=== PATIENT | male | born 1960 | race Caucasian/White ===

== ENCOUNTER 2019-09-03 17:52 | Emergency (ER) | payer SELFPAY ==
[2019-09-03 17:54] VITALS: BP 116/73; PULSE 94; RESP 18; TEMP 36.9; O2SAT 94; BMI 22.3
--- NOTE | 2019-09-03 18:05 | ED_ITS ---
HPI - Chest Pain General: Chief Complaint: Chest Pain Stated Complaint: ETOH Time Seen by Provider: 09/03/19 18:03 Source: patient and EMS Mode of arrival: EMS Limitations: no limitations History of Present Illness: HPI narrative: 59-year-old male who was at [facility] states he had been drinking alcohol and the clothing designer were called. Loan Administrator called EMS. Patient denies any pain currently. He states he does had a few beers today. He is able to ambulate without any problems and able answer all my questions appropriately at this time. Associated symptoms: Deny abdominal pain, dyspnea, fever(s), nausea or vomiting Review of Systems Const: Denies: fever(s), chills, body aches or change in appetite Eyes: Denies: blurry vision or eye discomfort ENMT: Denies: throat pain or dental pain Card: Denies: chest pain Resp: Denies: dyspnea GI: Denies: abdominal pain, nausea, vomiting or diarrhea : Denies: dysuria Musc: Denies: neck pain or back pain Skin/Breast: Denies: rash Neuro: Denies: headache(s) Psych: Denies: depression Gilbert/Lymph: Denies: easy bruising All/Imm: Denies: urticaria Physical Exam Const: COMMON NORMALS: no acute distress, patient oriented x3 and healthy appearing HENMT: COMMON NORMALS: normocephalic and atraumatic HEAD & SCALP: normocephalic and atraumatic Eye: COMMON NORMALS: Equal, round and reactive pupils present and EOMs intact bilaterally PUPIL: Yes Equal, round and reactive pupils present Neck/C-Spine: COMMON NORMALS: full ROM and supple Chest: COMMONS NORMALS: normal inspection of the chest and normal palpation of entire chest wall Resp: COMMON NORMALS: normal respiratory effort, No retractions, No use of accessory muscles and clear to auscultation bilaterally AUSCULTATION: clear to auscultation bilaterally Cardio: COMMON NORMALS: regular rate, regular rhythm and No murmurs present (Cardio) RATE: regular rate RHYTHM: regular rhythm GI: COMMON NORMALS: Normal to inspection, nondistended, normoactive bowel sounds present, Soft to palpation, non-tender and no masses PALPATION: Yes Soft to palpation Extremity: COMMON NORMALS: normal to inspection and full ROM Neuro: COMMON NORMALS: patient oriented x3, moves all extremities and no focal motor deficits Psych: COMMON NORMALS: mental status grossly normal, Normal thought process present and cooperative THOUGHT PROCESS: Normal thought process present Skin: COMMON NORMALS: no rashes or lesions noted and no wounds GENERAL SKIN EXAM: no rashes or lesions noted Course Vital Signs: Vital signs: Vital Signs Temperature 98.4 F 09/03/19 17:54 Pulse Rate 94 09/03/19 17:54 Respiratory Rate 18 09/03/19 17:54 Blood Pressure 116/73 09/03/19 17:54 Pulse Oximetry 94 09/03/19 17:54 MDM - Chest Pain MDM Narrative: Medical decision making narrative: Patient presents with alcohol intoxication. Patient is refusing treatment this time states he wants to go out and smoke and just leave. Patient is able ambulate answer all my questions and has medical decision-making capacity and is not too intoxicated to leave at this point. I did give him thiamine and multivitamin. Patient discharged. Discharge Plan Discharge Patient Disposition: Home, Self-Care Clinical Impression: Alcohol intoxication Qualifiers: Complication of substance-induced condition: uncomplicated Qualified Code(s): F10.920 - Alcohol use, unspecified with intoxication, uncomplicated Condition: Stable Discharge Orders: Discharge Order (Routine); Ordered 09/03/19 Ordered By: Silvia Little Discharge Diet: Advance as tolerated Discharge Activity: Resume usual activity Patient Instructions: Alcohol Intoxication (ED) Coding Level of Care Code ED Employee Operations Examiner for No Parmar
--- NOTE | 2019-09-03 18:10 | PC.NURSE ---
Patient refusing care, becoming agitated with nursing staff.
[2019-09-03 18:30] VITALS: RESP 18; TEMP 36.9; O2SAT 94
== END 2019-09-03 18:32 | disposition home or self-care (01) ==
LOC: ER 18:26
PROVIDERS: Emergency Provider Emergency Medicine
DX: F10.920 Alcohol use, unspecified with intoxication, uncomplicated (principal)
CPT/HCPCS: 12345; 96374; 99281; 99283; J3411

== ENCOUNTER 2020-01-01 13:58 | Inpatient (IN) | payer SELFPAY ==
[2020-01-01] VITALS (26 sets, daily range): BP systolic 101–152; BP diastolic 54–92; PULSE 41–86; RESP 6–24; TEMP 36.6–36.8; O2SAT 88–99; BMI 25.4
--- NOTE | 2020-01-01 | CT_ITS ---
WS: [id number] CTA THORACIC AND ABDOMINAL AORTA WITH AND WITHOUT CONTRAST. HISTORY: CHEST/ABS, BACK PAIN WITH NO FEMORAL PULSES TECHNIQUE: CTA imaging of the chest and abdomen is performed with and without contrast. After noncont rast imaging is performed, CT angiogram is performed during injection of Visipaque 320; 95 mL IV.. Sa gittal and coronal reconstructions, sagittal and coronal MIP imaging is submitted. All CT scans at [facility] use at least one of these dose optimization techniques: automated exposure contr ol; mA and/or kV adjustment per patient size (includes targeted exams where dose is matched to clinic al indication); or iterative reconstruction. DLP: 855.87 mGy.cm COMPARISON: None available. Angiographic imaging of the thoracic and abdominal aorta are negative for occlusion or dissection. Mi ld atherosclerotic plaque. No aneurysm. Proximal common iliac arteries are both patent. Study was not performed to include the distal iliac arteries. Normal size pulmonary artery. Mild chronic emphysema. 6 mm nodule along the RIGHT major fissure is probably a lymph node. No pneumo alf. No pericardial or pleural effusions. No mediastinal or hilar lymph nodes. There are a few scatte red coronary artery calcifications. Small hiatal hernia. No ascites or free air noted within the abdo men. Visualized GI tract is normal. There is no obstruction. Normal early arterial enhancement of the kidneys and liver. Thoracolumbar scoliosis. Mild anterior wedging of T5 and T7. CT/CT angio chest abdomen IMPRESSION: 1. No evidence for thoracic or abdominal aortic aneurysm or dissection. 2. Mild atherosclerosis within the thoracic aorta and abdominal aorta with goo d flow in the proximal common iliac arteries. 3. No pneumonia. 4. Emphysema. 5. Small hiatal hernia.
--- NOTE | 2020-01-01 14:12 | W.ED.CHESTPA ---
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 (0-40) U/L ALT (0-41) U/L Alkaline Phosphata se (40-130) IU/L Creatine Kinase (39-308) U/L Troponin T Baselin e (0-15) ng/L Troponin T 120 Min pauma (0-15) ng/L Delta Troponin T (0-10) ABS# Total Protein (6.6-8.7) g/dL Albumin (3.5-5.2) g/dL Globulin (1.3-4.6) g/dL Lipase 51 (13-60) U/L Urine Color (Yellow) Urine Appearance (CLEAR) Urine pH (5-7) Ur Specific Gravit y (1.005-1.030) Urine Protein (Negative) Urine Glucose (UA) (Normal) Urine Ketones (Negative) Urine Blood (Negative) Urine Nitrate (Negative) Urine Bilirubin (Negative) Urine Urobilinogen (Negative) mg/dL Ur Leukocyte Melanie ase (Negative) Urine Opiates Scre en (Negative) ng/mL Ur Barbiturates Sc reen (Negative) ng/mL Ur Phencyclidine S crn (Negative) ng/mL Ur Amphetamines Sc reen (Negative) ng/mL U Benzodiazepines Scrn (Negative) ng/mL Urine Cocaine Scre en (Negative) ng/mL U Marijuana (THC) Screen (Negative) ng/mL Ethyl Alcohol Cancelled (0-10) mg/dL 01/01/20 Range/Units 17:47 WBC (4.0-10.0) 10^3/ uL RBC (4.1-5.3) 10^6/u L Hgb (11.7-16.6) g/dL Hct (42.0-52.0) % MCV (80-94) fL MCH (28.0-34.0) pg MCHC (30.0-36.0) g/dL RDW (12.1-15.1) % Plt Count (130-400) 10^3/c mm MPV (7.4-10.4) fL Neut % (Auto) % Lymph % (Auto) % [place] % (Auto) % Eos % (Auto) % Baso % (Auto) % Neut # (Auto) (1.8-7.7) 10^3/u L Lymph # (Auto) (0.8-4.8) 10^3/u L [place] # (Auto) (0.2-0.9) 10^3/u L Eos # (Auto) (0.0-0.8) 10^3/u L Baso # (Auto) (0.0-0.1) 10^3/u L Nucleated RBC % (a uto) % Nucleated RBCs # /100WBC PT (12.1-14.9) SECO NDS INR (0.8-1.2) D-Dimer (0-0.59) ug/mIFE U Sodium (136-145) mmol/L Potassium (3.5-5.1) mmol/L Chloride (98-107) mmol/L Carbon Dioxide (22-29) mmol/L Anion Gap (5-19) BUN (8-23) mg/dL Creatinine (0.7-1.2) mg/dL GFR Calculation (90-130) mL/min Glucose (65-115) mg/dL Calculated Osmolal ity (285-295) mOsm/k g Lactic Acid 3.1 H (0.5-2.2) mmol/L Calcium (8.5-10.5) mg/dL Magnesium (1.7-2.3) mg/dL Total Bilirubin (0.15-1.2) mg/dL AST (0-40) U/L ALT (0-41) U/L Alkaline Phosphata se (40-130) IU/L Creatine Kinase (39-308) U/L Troponin T Baselin e (0-15) ng/L Troponin T 120 Min pauma (0-15) ng/L Delta Troponin T (0-10) ABS# Total Protein (6.6-8.7) g/dL Albumin (3.5-5.2) g/dL Globulin (1.3-4.6) g/dL Lipase (13-60) U/L Urine Color (Yellow) Urine Appearance (CLEAR) Urine pH (5-7) Ur Specific Gravit y (1.005-1.030) Urine Protein (Negative) Urine Glucose (UA) (Normal) Urine Ketones (Negative) Urine Blood (Negative) Urine Nitrate (Negative) Urine Bilirubin (Negative) Urine Urobilinogen (Negative) mg/dL Ur Leukocyte Melanie ase (Negative) Urine Opiates Scre en (Negative) ng/mL Ur Barbiturates Sc reen (Negative) ng/mL Ur Phencyclidine S crn (Negative) ng/mL Ur Amphetamines Sc reen (Negative) ng/mL U Benzodiazepines Scrn (Negative) ng/mL Urine Cocaine Scre en (Negative) ng/mL U Marijuana (THC) Screen (Negative) ng/mL Ethyl Alcohol (0-10) mg/dL Imaging Data^: CTA Chest/Abdomen/Pelvis: Radiologist's impression: [address] [address] [address] Scan Report Signed Patient: Hema Segovia Unit #: [id number] : 1960 Age/Sex: 59 / M ADM Date: 01/01/20 Loc: ER Room/Bed: Attending Dr: Ordering Provider/Ordering MD: Darwin Franco DO Date of Service: 01/01/20 Procedure(s): CT angio chest abdomen Accession Number(s): [id number] Report Number: [id number] WS: [id number] CTA THORACIC AND ABDOMINAL AORTA WITH AND WITHOUT CONTRAST. HISTORY: CHEST/ABS, BACK PAIN WITH NO FEMORAL PULSES TECHNIQUE: CTA imaging of the chest and abdomen is performed with and without contrast. After noncontrast imaging is performed, CT angiogram is performed during injection of Visipaque 320; 95 mL IV.. Sagittal and coronal reconstructions, sagittal and coronal MIP imaging is submitted. All CT scans at [facility] use at least one of these dose optimization techniques: automated exposure control; mA and/or kV adjustment per patient size (includes targeted exams where dose is matched to clinical indication); or iterative reconstruction. DLP: 855.87 mGy.cm COMPARISON: None available. Angiographic imaging of the thoracic and abdominal aorta are negative for occlusion or dissection. Mild atherosclerotic plaque. No aneurysm. Proximal common iliac arteries are both patent. Study was not performed to include the distal iliac arteries. Normal size pulmonary artery. Mild chronic emphysema. 6 mm nodule along the RIGHT major fissure is probably a lymph node. No pneumonia. No pericardial or pleural effusions. No mediastinal or hilar lymph nodes. There are a few scattered coronary artery calcifications. Small hiatal hernia. No ascites or free air noted within the abdomen. Visualized GI tract is normal. There is no obstruction. Normal early arterial enhancement of the kidneys and liver. Thoracolumbar scoliosis. Mild anterior wedging of T5 and T7. CT/CT angio chest abdomen IMPRESSION: 1. No evidence for thoracic or abdominal aortic aneurysm or dissection. 2. Mild atherosclerosis within the thoracic aorta and abdominal aorta with good flow in the proximal common iliac arteries. 3. No pneumonia. 4. Emphysema. 5. Small hiatal hernia. Dictated By: Martha Canada DO Signed By: Martha Canada DO Signed Date/Time: 01/01/20 1443 DD/ 1435 EKG Data^: EKG 1: Attestation: I personally reviewed and interpreted this EKG as follows: EKG interpretation date: 01/01/20 EKG interpretation time: 13:57 Interpretation: Probable sinus bradycardia with a ventricular to 46 beats a minute, significant baseline artifact present, questionable ST elevation in room numeral 3, ST segment depression in V2, otherwise nonspecific ST-T wave changes. No old for comparison. EKG 2: Attestation: I personally reviewed and interpreted this EKG as follows: EKG interpretation date: 01/01/20 EKG interpretation time: 17:37 Interpretation: Normal sinus rhythm at 64 beats a minute, no acute ST or T wave changes. No blocks, normal intervals. EKG 3: Attestation: I personally reviewed and interpreted this EKG as follows: EKG interpretation date: 01/01/20 EKG interpretation time: 17:56 Interpretation: Normal sinus rhythm at 54 beats a minute, first-degree AV block, nonspecific ST and T wave changes. EKG 4: Attestation: I personally reviewed and interpreted this EKG as follows: EKG interpretation date: 01/01/20 EKG interpretation time: 20:31 Interpretation: Sinus bradycardia 54 beats a minute, no blocks, normal axis, no acute ST-T wave changes. Discharge Plan Discharge Patient Disposition: Placed in Observation Admit Provider: Dione Evans Clinical Impression: NSTEMI (non-ST elevated myocardial infarction) Coding Level of Care Code ED Muck Farmer for g Fwd Exam Comprehensive
[2020-01-01 14:17] LABS: Basophils # 0.1 10^3/uL (0.0-0.1); Basophils % 0.6 %; Eosinophils # 0.4 10^3/uL (0.0-0.8); Eosinophils % 3.4 %; Hematocrit 45.9 % (42.0-52.0); Hemoglobin 15.2 g/dL (11.7-16.6); Lymphocytes # 4.3 10^3/uL (0.8-4.8); Lymphocytes % 41.1 %; Mean Corpuscular HGB Conc 33.1 g/dL (30.0-36.0); Mean Corpuscular Hemoglobin 31.8 pg (28.0-34.0); Mean Platelet Volume 10.3 fL (7.4-10.4); Monocytes % 10.1 %; Neutrophils # 4.62 10^3/uL (1.8-7.7); Neutrophils % 44.6 %; Nucleated Red Blood Cells % 0 %; Platelet Count 320 10^3/cmm (130-400); Red Blood Count 4.78 10^6/uL (4.1-5.3); Red Cell Distribution Width 12.5 % (12.1-15.1); White Blood Count 10.3 10^3/uL (4.0-10.0)
[2020-01-01] MEDS: iodixanol 320 mg/mL 100mL Btl IV (14:23)
--- NOTE | 2020-01-01 14:31 | ECG_ITS ---
[facility] Test Date: 2020-01-01 Pat Name: Hema Segovia Department: Room: Gender: Male Inspector Multifocal Lens: : 1960 Requested By: Darwin Ward Order Number: [id number] Reading MD: DAVID COELHO Measurements Intervals [place] Rate: 46 P: VA: QRS: 64 QRSD: 82 T: 66 QT: 453 QTc: 399 Interpretive Statements Sinus BRADYCARDIA NONSPECIFIC ST & T-WAVE ABNORMALITY ABNORMAL RHYTHM ECG No previous ECG available for comparison Electronically Signed On 01-01-2020 19:36:43 SEX THERAPIST by DAVID COELHO [email or web address] medical centerradRounds Radiology Networkwyandot memorial hospital.TaKaDu/store/NU/[id number] f
[2020-01-01 14:33] LABS: Alanine Aminotransferase 30 U/L (0-41); Albumin Level 4.1 g/dL (3.5-5.2); Alkaline Phosphatase 95 IU/L (40-130); Anion Gap 15.3 (5-19); Aspartate Amino Transferase 36 U/L (0-40); Blood Urea Nitrogen 10 mg/dL (8-23); Calcium 8.6 mg/dL (8.5-10.5); Carbon Dioxide 25 mmol/L (22-29); Chloride 100 mmol/L (98-107); Creatine Phosphokinase 65 U/L (39-308); Globulin 2.6 g/dL (1.3-4.6); Glomerular Filtration Rate 98.3 mL/min (90-130); Glucose 189 mg/dL (65-115); Osmolality Calculated 288 mOsm/kg (285-295); Potassium 3.3 mmol/L (3.5-5.1); Sodium 137 mmol/L (136-145); Total Bilirubin 0.4 mg/dL (0.15-1.2); Total Protein 6.7 g/dL (6.6-8.7)
[2020-01-01] MEDS: ondansetron 2 mg/ML SDV 2 mL 4 MG IVP (14:40)
[2020-01-01] MEDS: morphine 4 mg/mL SDV 1 mL IVP (14:40)
--- NOTE | 2020-01-01 16:31 | ECG_ITS ---
[facility] Test Date: 2020-01-01 Pat Name: Hema Segovia Department: Room: Gender: Male Desizing Machine Offbearer: : 1960 Requested By: Darwin Ward Order Number: [id number] Reading MD: DAVID COELHO Measurements Intervals [place] Rate: 64 P: 60 CA: 200 QRS: -6 QRSD: 90 T: -25 QT: 407 QTc: 421 Interpretive Statements SINUS RHYTHM NONSPECIFIC T-WAVE ABNORMALITY Compared to ECG 01/01/2020 13:57:57 No significant changes Electronically Signed On 01-01-2020 19:39:43 PATIENT SUPPORT TECH by DAVID COELHO [email or web address]/store/OM/[id number]/[id number]
[2020-01-01 17:18] LABS: Add Urine Microscopic? NO
[2020-01-01 17:37] LABS: Blood Urine Neg (Negative); Glucose Urine UA Trace (Normal); Ketones Urine Negative (Negative); Nitrate Urine Negative (Negative); Protein Urine Neg (Negative); Urine Appearance Clear (CLEAR); Urine Color Yellow (Yellow); pH Urine 6 (5-7)
[2020-01-01 17:38] LABS: Bilirubin Urine Neg (Negative); Leukocyte Esterase Urine Negative (Negative); Urobilinogen Urine Norm (Negative)
[2020-01-01 17:56] LABS: Troponin(5th) Baseline 29 ng/L (0-15)
[2020-01-01 18:27] LABS: Lactic Sepsis W/Reflex 3.1 mmol/L (0.5-2.2)
[2020-01-01 18:29] LABS: Troponin 5 2HR 66.93 ng/L (0-15)
[2020-01-01] MEDS: potassium chloride ER 10 mEq Tablet 40 MEQ PO (18:34)
[2020-01-01 18:42] LABS: Troponin 5 2HR Delta 37.93 ABS# (0-10)
[2020-01-01 18:51] LABS: Magnesium 1.9 mg/dL (1.7-2.3)
[2020-01-01] MEDS: nitroglycerin 0.4 mg sublingual Tablet SUBLINGUAL (18:54)
[2020-01-01] MEDS: aspirin 325 mg Tablet PO (18:54)
[2020-01-01] MEDS: sodium chloride 0.9% 1,000 ML 999 ML IV (19:24)
[2020-01-01] MEDS: HYDROmorphone 1 mg/mL INJ 1 mL IVP (19:25)
[2020-01-01 19:41] LABS: Reflex Lactate Order REFLEX LACTIC ORDERD
[2020-01-01] MEDS: nitroglycerin 1 gm/inch oint Pkt 1 INCH TOPICAL (20:05)
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
[2020-01-01 20:27] LABS: Lipase 51 U/L (13-60)
--- NOTE | 2020-01-01 20:31 | ECG_ITS ---
[facility] Test Date: 2020-01-01 Pat Name: Hema Segovia Department: Room: Gender: Male Installer Interior Assemblies: : 1960 Requested By: Darwin Ward Order Number: [id number] Reading MD: DAVID COELHO Measurements Intervals [place] Rate: 54 P: 40 CA: 213 QRS: -18 QRSD: 85 T: -48 QT: 436 QTc: 416 Interpretive Statements SINUS BRADYCARDIA WITH FIRST DEGREE AV BLOCK NONSPECIFIC T-WAVE ABNORMALITY Compared to ECG 01/01/2020 17:37:48 First degree AV block now present Sinus rhythm no longer present T-wave abnormality still present Electronically Signed On 01-01-2020 19:39:40 SECOND LANGUAGE TUTOR by DAVID COELHO [email or web address] hospitalCherry Bugsholmes county [facility].Rated People/store/OM/[id number]/ecg/[id number]
--- NOTE | 2020-01-01 20:43 | PC.NURSE ---
EKG done at 2032 and shown to ER doctor
[2020-01-01 20:49] LABS: INR 0.98 (0.8-1.2)
[2020-01-01 21:06] LABS: Alcohol Level 109 mg/dL (0-10)
[2020-01-01] MEDS: enoxaparin 80 mg/0.8 mL Syringe 67 MG SUBCUT (21:17)
[2020-01-01 21:28] LABS: Amphetamines Screen Urine Negative (Negative); Barbiturates Screen Urine Negative (Negative); Benzodiazepines Screen Urine Negative (Negative); Cocaine Screen Urine Negative (Negative); Opiate Screen Urine Positive (Negative); PCP Screen Urine Negative (Negative); THC Screen Urine Negative (Negative)
[2020-01-01 22:06] LABS: Lactic Sepsis W/Reflex 2.6 mmol/L (0.5-2.2)
[2020-01-01 22:15] LABS: Troponin 5 6HR 191.8 ng/L (0-15); Troponin 5 6HR Delta 162.8 ng/L (0-12)
[2020-01-01 22:24] LABS: Thyroid Stimulating Hormone 1.87 uIU/mL (0.27-4.20)
[2020-01-01] MEDS: clopidogrel 75 mg Tablet PO (22:36)
[2020-01-01] MEDS: dextrose 5%-sod chloride 0.45% 1,000 ML 30 ML IV (22:37)
--- NOTE | 2020-01-01 22:54 | PC.NURSE ---
Patient arrived from ED via wheelchair at 2135. Telemetry placed. Patient denies pain. Admission completed as documented. Patient reports no home meds except for low dose aspirin. Patient pleasant and agreeable. Instructed patient on Plavix administration. Patient reports having taken Plavix in the past for previous PCI placement.
[2020-01-01 23:25] LABS: Reflex Lactate Order REFLEX LACTIC ORDERD
[2020-01-02] VITALS (34 sets, daily range): BP systolic 94–145; BP diastolic 52–93; PULSE 44–97; RESP 0–20; TEMP 36.2–36.9; O2SAT 93–98
[2020-01-02 00:24] LABS: Lactic Acid level (Lactate) 1.3 mmol/L (0.5-2.2)
[2020-01-02 05:05] LABS: Basophils % 0.5 %; Eosinophils # 0.3 10^3/uL (0.0-0.8); Hemoglobin 13.6 g/dL (11.7-16.6); Lymphocytes % 38.4 %; Mean Corpuscular HGB Conc 33.2 g/dL (30.0-36.0); Mean Corpuscular Hemoglobin 31.8 pg (28.0-34.0); Mean Corpuscular Volume 95.8 fL (80-94); Mean Platelet Volume 10.5 fL (7.4-10.4); Monocytes # 0.8 10^3/uL (0.2-0.9); Monocytes % 9.9 %; Neutrophils # 3.63 10^3/uL (1.8-7.7); Neutrophils % 47.1 %; Nucleated Red Blood Cells % 0 %; Platelet Count 277 10^3/cmm (130-400); Red Blood Count 4.28 10^6/uL (4.1-5.3); Red Cell Distribution Width 12.6 % (12.1-15.1); White Blood Count 7.7 10^3/uL (4.0-10.0)
[2020-01-02 05:22] LABS: Anion Gap 11.3 (5-19); Blood Urea Nitrogen 11 mg/dL (8-23); Calcium 8.2 mg/dL (8.5-10.5); Carbon Dioxide 25 mmol/L (22-29); Chloride 107 mmol/L (98-107); Glomerular Filtration Rate 114.6 mL/min (90-130); Glucose 169 mg/dL (65-115); Osmolality Calculated 291 mOsm/kg (285-295); Potassium 4.3 mmol/L (3.5-5.1); Sodium 139 mmol/L (136-145)
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
[2020-01-02] MEDS: aspirin 81 mg EC Tablet PO (08:49)
[2020-01-02] MEDS: folic acid 1 mg Tablet PO (08:50)
[2020-01-02] MEDS: atorvastatin 40 mg Tablet 80 MG PO (08:50)
[2020-01-02] MEDS: lisinopril 10 mg Tablet PO (08:50)
[2020-01-02] MEDS: enoxaparin 80 mg/0.8 mL Syringe 70 MG SUBCUT (08:51)
[2020-01-02] MEDS: nitroglycerin 1 gm/inch oint Pkt 1 INCH TOPICAL ×3 (08:56→20:38)
--- NOTE | 2020-01-02 10:00 | PC.CHAP ---
Pastoral Care Encounter/Spiritual Assessment Type of Contact [] Declined top lift trimmer visit [] Patient/Family/Request visit [] Outpatient visit [] Follow-up visit [] Physician referral [] Code/Alert [x] Routine visit [] Staff referral [] Actively dying [] Patient sleeping [] Family support [] [] Out of room [] Palliative care [] [x] Receiving care in room [] Pre-surgical visit [] Trauma [] Long length of stay [] ICU visit [] Other: Relational/Emotional Strength [x] Patient feels connected with others/family/visitors/staff [] Distress [] Loneliness/isolation [] Abandonment Spirituality of Patient [x] Person of Gwendolyn [] Attends Hoahaoism of their Gwendolyn [x] Believes in Prayer [] Reads Bible or Episcopal materials [] There are Spiritual issues to be addressed Claim Benefit Specialist Interventions [x] Prayer [x] Active listening [x] Non-anxious presence [x] Spiritual/emotional support [] Crisis/trauma care [x] Spiritual counseling [] Bereavement support [] Provided bereavement packet [] Provided Bible/devotional materials [] Provided toy/stuffed animal, coloring book to patient or family member [] Provided Communion [] Anointing/[place] [] Salvation [x] Completed spiritual assessment [] Other: Impact on Illness or Injury [] Angry [] Fearful [] Anxious [] Often cries [] Exhaustion [] Unable to work [] Unable to attend pentecostalism [] Unable to walk/stand [] Unable to read [] Unable to drive [] Unable to eat/drink [] Unable to sleep [] Unable to be with family [] Patient intubated [] Other: Summary he has tests, going to have a proceduer today, has a good attitude, feels good, going home soon Time spent with patient 10 mins
[2020-01-02 10:13] LABS: Cholesterol 193 mg/dL (0-200); HDL Cholesterol 42 mg/dL (60-100); LDL Cholesterol Calculated 116 mg/dL (50-129); LDL HDL Ratio 2.76 RATIO (0.00-3.22); Triglycerides 175 mg/dL (0-150)
--- NOTE | 2020-01-02 10:21 | XACV_ITS ---
Exam Room: [facility] Ht: 163 cm Wt: 63 kg BSA: 1.69 m2 Gender: Male : 1960 Exam Priority: Routine Procedure(s): Procedure Description: Diagnostic procedure Procedure Description: Left Heart Catheterization Diagnostic Cath Status: Elective Diagnostic Findings * Coronary angiography shows right dominance. * The left main is a medium caliber vessel with no significant stenotic lesions. * The left anterior descending artery is a medium caliber vessel which appears to wrap around the LV apex. Towards the first diagonal branch, the LAD was found to have a tapering narrowing of around 40%. The distal artery was found to have mild diffuse intimal irregularities. The diagonal branches were found to be of relatively small caliber vessels. The first diagonal branch was found in ostial 50% stenosis. * The left circumflex artery is a medium caliber nondominant vessel, after giving off a slender AV groove branch, continues as the first obtuse marginal branch which then bifurcates at the mid segment. The proximal segment of the obtuse marginal artery was found to have around 20 to 30% diffuse irregular narrowing. No other significant stenotic lesions. * The right coronary artery is a dominant vessel, of medium caliber. There is a long stented area in the proximal and mid segment of the artery. Just distal to the stented segment, there was a 90% concentric lesion in the artery. The PDA and the PLV branches were found to have no significant stenotic lesions. PCI Status: Elective Interventional Findings * Proximal Right Coronary Artery: 40% stenosis treated with MDT NC EUPHORA RX [id number] BALLOON. 0% residual stenosis, YESENIA: 3 flow. * Mid Right Coronary Artery: 90% stenosis treated with MDT R RAMBO 2.75X26 NISH. 0% residual stenosis, YESENIA: 3 flow. Conclusions 1. This is a 59-year-old white male with history of atherosclerotic heart disease, high blood pressure, dyslipidemia, poorly compliant with medications and medical follow-ups and with a history of alcohol addiction, is admitted to the hospital with a prolonged episode of chest pain and elevated troponin T. He underwent left heart catheterization with a left and right coronary angiogram and LV angiogram today. The findings are as follows. 2. High-grade lesion in the right coronary artery, beyond the stented segment. Mild diffuse disease in the other vessels. Diminished LV ejection fraction of 45%. LVEDP of 18 mmHg. 3. Based on the above angiogram findings and also patient's clinical presentation, for further management of his condition, PCI of the RCA lesion was told to be appropriate. I discussed and reviewed the cardiac catheterization data with , who agreed with this plan and took over further management of this patient. 4. Proximal Right Coronary Artery was treated with Balloon. 5. Mid Right Coronary Artery was treated with Drug Eluting Stent. Recommendations * Continue current medical management and risk factor modification. Diagnostic RX Recommendation: PCI w/o planned CABG Ventriculography Ejection Fraction: 45.0 % LV EDP: 18 mmHg Left Ventriculography Findings: * The LV gram was performed in the BLEDSOE position. The LV cavity was of normal size. There was mild diffuse hypokinesia of the inferior and apical regions. No filling defects were noted. No significant mitral valve prolapse. Mild mitral regurgitation was noted. Overall LV ejection fraction was around 45%. Pressures Phase:Rest AO : 118 / 58 ( 80 ) @ 11:00:00 AM 109 / 53 ( 75 ) @ 11:07:00 AM 115 / 51 ( 76 ) @ 11:07:00 AM LV : 116 / -7 / @ 11:06:00 AM 112 / -6 / @ 11:06:00 AM 108 / -5 / @ 11:07:00 AM 110 / -5 / @ 11:07:00 AM Valves Phase:DefaultPhase AV : 1.0 @ 6:20:10 PM AV Mean Gradient: 0.0 @ 6:20:10 PM Clinical Evaluation EBL: 5mL-10mL Procedural Details Procedure Consent Obtained. Admit Source: In Patient. Pre-Procedure Time Out. Identified patient by full name and date of as verbalized by the patient/guarantor. Does the consent match the physician's order: Yes. Accurate & Complete Informed Consent: Yes. Inpatient/Outpatient History & Physical on Chart: Yes. If H&P is completed, is and addenduem needed: No; If yes, is the addendum complete: N/A. Visualize and Verify Site with Patient/Guarantor: N/A. Relevant Radiology Images available: N/A. Pre-op teaching completed and patient verbalized understanding. The risks, benefits, and alternatives of sedation and/or procedure were discussed by physician. The patient agrees to continue. Procedure started. Correct patient, site and procedure confirmed by cath team. PERRLA. Strong, equal hand operational intelligence analyst bilaterally. Lungs clear x 5 lobes. IV Site on Arrival: 20 gauge in the right forearm. IV Site on Arrival: 20 gauge in the left forearm. Oxygen started at 2liters/min via nasal canula. bilateral groins was prepped with chloroprep then draped in the usual sterile fashion. Baseline sample Acquired. HR: 45 BPM. Physician notified. Physician arrived. Physician scrubbed in. Immediate Pre-Procedure Time Out. Correct Patient: Yes; Correct Procedure: Yes; Correct Site: Yes; Correct Patient Position: Yes; Correct Supplies: Yes; Dried Flammable Prep: Yes; Blood Products Available: NA;. Lidocaine 1% infiltrated to the right groin. Arterial access obtained with micropuncture set. A 5 maltese JL4 catheter in over wire. wire out. Multiple views taken of left coronary artery. Catheter out. A 5 maltese JR4 catheter in over wire. Multiple views taken of right coronary artery. Catheter out. A 5 maltese Angled Pig catheter in over wire. LV gram performed in BLEDSOE @ 10 mL/second for a total of 30 mL. EDP Sample taken: LV 116/-8,17; HR: 53 BPM; SpO2: 95%. EDP Sample taken: LV 108/-6,17; HR: 55 BPM; SpO2: 95%. Pullback taken: LV 110/-6,19; AO 109/53(75); Mean: 0mmHg, Peak to Peak: 1mmHg, SEP: 15sec/min; HR: 58 BPM; SpO2: 95%. Catheter out. Sheath upsized to a 6 Fr. Side port of sheath attached to Normal Saline flush at KVO to maintain patency. family updated. Dr. Montero notified. Dr. Montero arrived. Physician scrubbed in. 6 maltese JR 4 guide catheter was inserted over the wire. wire out. Multiple views taken of right coronary artery. Inflation Number : 1 A MDT R RAMBO 2.75X26 NISH -Lot Number# [id number] exp date: 04-15-2021 was prepped and advanced across the Mid RCA. The stent was deployed at 18 JIM for 0:25 seconds. Stent balloon out over wire. checking results. Inflation number : 1 Aziza SMITH EUPHORA RX [id number] BALLOON was prepped and advanced across the Prox RCA , then inflated to 14 JIM for 0:35 seconds. Balloon out. checking results. Wire out. guide out. Sheath(s) sutured into position with 2-0 silk and sterile 4x4's and Op-site applied over the site. No oozing or signs and symptoms of hematoma noted. Post Procedure: Pulses reassessed and unchanged. PERRLA. Strong, equal hand operational intelligence analyst bilaterally. No VTE prophylaxis required. Medication's Wasted: Lidocaine 1% = 8 mL. Medication's Wasted: Heparin = 9000 units. Total IV fluids: 400 mL. Contrast type used: Omnipaque 300 mgI/mL, 500 mL bottle. Contrast Material : Omnipaque 170 ml. A Suture was successful obtaining hemostatsis at the Right Femoral artery insertion site. Complications: none. Estimated blood loss: 5mL-10mL. Procedure completed. [facility] Clinical Fraility Score: 4: Vulnerable. Chest Pain Symptom Assessment: Typical Angina Symptoms. Cardiovascular Instability: No,. A Auxiliary Indications: ACS > 24 hours. PCI Indication: significant one vessel disease. Post-op diagnosis: PCI stent. Patient transferred by bed to 1st floor. Vital chart was stopped. Access Site Site: Right Femoral artery Sheath Size: 5 Fr Hemostasis Method: Suture Hemostasis Success: Successful Procedure Medications Start: 4:24 PM Stop: 4:24 PM Medication: Fentanyl Amount: 50 mcg Route: I.V. Start: 4:37 PM Stop: 4:37 PM Medication: Versed Amount: 1 mg Route: I.V. Start: 4:37 PM Stop: 4:37 PM Medication: Fentanyl Amount: 50 mcg Route: I.V. Start: 4:51 PM Stop: 4:51 PM Medication: 0.9% Saline Amount: 250 ml Route: I.V. bolus Start: 5:06 PM Stop: 5:06 PM Medication: 0.9% Saline Amount: 100 ml/hr Route: I.V. drip Start: 5:27 PM Stop: 5:27 PM Medication: Versed Amount: 0.5 mg Route: I.V. Start: 5:42 PM Stop: 5:42 PM Medication: Versed Amount: 0.5 mg Route: I.V. Start: 5:50 PM Stop: 5:50 PM Medication: Lovenox (Enoxaparin) Amount: 30 mg Route: I.V. bolus I, the attending physician, have reviewed and verified all procedure medications. Yes, all medications given per verbal order History/Risk Factors Hypertension: No Dyslipidemia: Yes Myocardial Infarction (CO): No Renal Disease: No Tobacco Use: Current/Recent(w/in 1 year) Prior Interventions PCI: Yes CABG: No Report Signatures Interventional Workflow Finalized by Dione Montero MD on 01/14/2020 07:26 PM Diagnostic Workflow Finalized by Dr Mateus Edwards MD [facility] on 01/03/2020 08:01 AM
[2020-01-02] MEDS: clopidogrel 300 mg Tablet PO (10:40)
--- NOTE | 2020-01-02 12:26 | P.PN_ITS ---
Subjective Subjective: Interval history: This morning he is asleep, but wakes up easily. Denies chest pain presently. Denies trouble breathing. Vitals/I&O/Wt Last Vital Signs Temp 98.2 F 01/02/20 10:38 Pulse 58 L 01/02/20 10:38 Resp 15 01/02/20 10:38 BP 104/52 01/02/20 10:38 Pulse Ox 95 01/02/20 10:38 01/01/20 01/02/20 01/02/20 22:59 06:59 14:59 Intake Total 120 / 120 Output Total 175 / 175 200 / 375 300 / 300 Balance -55 / -55 -200 / -255 -300 / -300 Weight last 48 hrs Weight 62.868 kg Weight 67.132 kg Physical Exam Const: COMMON NORMALS: no acute distress and patient oriented x3 HENMT: COMMON NORMALS: oropharynx normal Neck/C-Spine: COMMON NORMALS: no JVD Resp: COMMON NORMALS: normal respiratory effort and clear to auscultation bilaterally AUSCULTATION: clear to auscultation bilaterally Cardio: COMMON NORMALS: no JVD, regular rhythm, S1 normal heart sound present, S2 normal heart sound present and No murmurs present (Cardio) RHYTHM: regular rhythm HEART SOUNDS: S1 normal heart sound present and S2 normal heart sound present GI: COMMON NORMALS: Normal to inspection, nondistended, normoactive bowel sounds present, Soft to palpation and non-tender PALPATION: Yes Soft to palpation Extremity: COMMON NORMALS: no joint enlargement and no pedal edema Neuro: COMMON NORMALS: patient oriented x3 and moves all extremities Skin: COMMON NORMALS: no rashes or lesions noted GENERAL SKIN EXAM: no rashes or lesions noted Data : 01/02/20 04:20 01/02/20 04:20 A&P Assessment and plan (1) NSTEMI (non-ST elevated myocardial infarction): Plans for coronary angiogram this afternoon for additional assessment for non-STEMI. Continue cardiac medications. Blood pressure soft but stable. Hold beta-clive due to bradycardia, heart rate 58. Status: Acute (2) Hypokalemia: Replaced. Status: Acute (3) Lactic acidemia: Resolved. Status: Acute Additional A&P Information Alcohol abuse: monitor for withdrawal. Contininue thiamine, folic acid. Breakthrough seizures: So far no seizures seen. Monitor. Seizure precautions. Patient is endorsing breakthrough seizures after head trauma Patient has not taken Dilantin or phenobarbital in a long time Low threshold to start Keppra Discharge planning is working on helping him to choose a PCP. Full code N.p.o. DVT prophylaxis not needed currently on therapeutic dose of Lovenox Attestations Medical Necessity Statement*: Continue admission for assessment and management of NSTEMI. Coding Level of Care Code Acute Engineering Document Control Clerk for [facility] Fwd Exam Comprehensive Diagnoses NSTEMI (non-ST elevated myocardial infarction) I21.4 Hypokalemia E87.6 Lactic acidemia E87.2
[2020-01-02] MEDS: diphenhydrAMINE 50 mg Capsule PO (15:12)
[2020-01-02] MEDS: sodium chloride 0.9% 1,000 ML 50 ML IV (15:13)
--- NOTE | 2020-01-02 16:37 | W.PM.OPSUD ---
Surgery/Procedure H&P Update DATE OF PROCEDURE: January 02, 2020 DATE H&P PERFORMED: 01/02/20 PREOP DIAGNOSIS: Non-ST elevation myocardial infarction/Unstable angina PLANNED PROCEDURE: Operation Date: 01/02/20 16:30 Proposed Procedures p Left Cardiac Catheterization 66502 R07.89(Left) - Mateus Edwards MD PATIENT REASSESSED PRIOR TO SEDATION, WITH NO CHANGE NOTED: Yes PHYSICAL EXAM: alert, oriented x 3, clear to auscultation bilaterally and regular rate & rhythm AIRWAY EVAL/ANESTHESIA PLAN: normal airway, see other exam findings, ASA III, Monitored Anesthesia, Local Anesthesia, Risks, benefits & alternatives of sedation and/or procedure discussed and Patient agrees to continue as planned
--- NOTE | 2020-01-02 18:17 | PC.NURSE ---
Patient back to [facility] from heart laboratory supervisor. Patient report states was given IV Lovenox and sheath cannot be removed before 0200.
--- NOTE | 2020-01-02 21:38 | USCV_ITS ---
Hema Segovia Age: 59 Gender: M : 1960 Exam Date: 01/02/2020 06:32 Ordering Phys: Dione Evans MD Technologist: Faheem Bowie Exam Location: [facility] Indication: CHEST PAIN BP: 108 / 65 HR: 49 Rhythm: Sinus Technical Quality: Good MEASUREMENTS (Male / Female) Normal Values 2D ECHO LV Diastolic Diameter PLAX 4.4 cm 4.2 - 5.9 / 3.9 - 5.3 cm LV Systolic Diameter PLAX 3.0 cm IVS Diastolic Thickness 1.0 cm 0.6 - 1.0 / 0.6 - 0.9 cm IVS Systolic Thickness 1.4 cm LVPW Diastolic Thickness 1.0 cm 0.6 - 1.0 / 0.6 - 0.9 cm LVPW Systolic Thickness 1.1 cm LVOT Diameter 2.0 cm LV Ejection Fraction 2D Teich 59.2 % LV Ejection Fraction MOD 2C 48.3 % LV Ejection Fraction 2C AL 48.4 % LA Diameter 2.9 cm LA Width 3.6 cm LA Height 4.4 cm RA Width 3.3 cm RA Height 4.4 cm M-MODE LV Diastolic Diameter MM 5.8 cm 4.2 - 5.9 / 3.9 - 5.3 cm LV Systolic Diameter MM 4.1 cm LV Ejection Fraction MM Teich 56.3 % IVS Diastolic Thickness MM 0.7 cm 0.6 - 1.0 / 0.6 - 0.9 cm IVS Systolic Thickness MM 1.3 cm LVPW Diastolic Thickness MM 0.8 cm 0.6 - 1.0 / 0.6 - 0.9 cm LVPW Systolic Thickness MM 1.5 cm RV Diastolic Diameter MM 1.2 cm Aortic Annulus Diameter 3.5 cm LA Ao Ratio MM 1.0 MV E Point Septal Separation 1.8 cm DOPPLER AV Peak Velocity 110.0 cm/s LVOT Peak Velocity 89.0 cm/s AV Area Cont Eq vti 2.2 cm squared AV Area Cont Eq pk 2.5 cm squared MV Area PHT 5.0 cm squared Mitral E to A Ratio 1.0 MV E' Velocity 52.0 cm/s Mitral E to MV E' Ratio 11.2 Mitral E to LV E' Lateral Ratio 10.9 Mitral E to LV E' Septal Ratio 11.6 TR Peak Velocity 122.0 cm/s TR Peak Gradient 6.0 mmHg TV Peak E Velocity 121.0 cm/s Right Atrial Pressure 3.0 mmHg Pulmonary Artery Systolic Pressu 9.0 mmHg PV Peak Velocity 101.0 cm/s FINDINGS Left Ventricle Normal left ventricular size and systolic function, EF 55 %. No regional wall motion abnormalities. Right Ventricle The right ventricle is normal in size and function. Right Atrium The right atrium is normal in size. Left Atrium The left atrium is normal in size. Mitral Valve Thickened mitral valve. Aortic Valve Thickened aortic valve. Tricuspid Valve Trace tricuspid valve regurgitation. Pulmonic Valve Structurally normal pulmonic valve without significant stenosis. There is no pulmonic regurgitation. Pericardium Normal pericardium without effusion. Aorta Normal ascending aorta dimension. CONCLUSIONS Normal left ventricular size and systolic function, EF 55 %. No regional wall motion abnormalities. Minimally thickened aortic and mitral valves. Trace of tricuspid regurgitation. There is no pericardial effusion. There are no intracardiac masses. There are no prior echocardiogram studies to compare. Dr Mateus Edwards MD FACC (Electronically Signed) Final Date: 02 January 2020 08:33 S
[2020-01-03] VITALS (72 sets, daily range): BP systolic 90–127; BP diastolic 47–79; PULSE 46–70; RESP 0–20; TEMP 36.3–37.1; O2SAT 93–96
[2020-01-03] MEDS: LORazepam 2 mg/mL INJ 1 mL IVP (00:20)
[2020-01-03 03:53] LABS: Basophils # 0.1 10^3/uL (0.0-0.1); Basophils % 0.7 %; Eosinophils # 0.3 10^3/uL (0.0-0.8); Eosinophils % 3.3 %; Hematocrit 36.9 % (42.0-52.0); Hemoglobin 12.2 g/dL (11.7-16.6); Mean Corpuscular HGB Conc 33.1 g/dL (30.0-36.0); Mean Corpuscular Hemoglobin 31.9 pg (28.0-34.0); Mean Corpuscular Volume 96.6 fL (80-94); Monocytes # 0.8 10^3/uL (0.2-0.9); Monocytes % 10.7 %; Neutrophils # 4.38 10^3/uL (1.8-7.7); Nucleated Red Blood Cells % 0 %; Platelet Count 270 10^3/cmm (130-400); Red Blood Count 3.82 10^6/uL (4.1-5.3); Red Cell Distribution Width 12.7 % (12.1-15.1); White Blood Count 7.6 10^3/uL (4.0-10.0)
--- NOTE | 2020-01-03 04:18 | PC.NURSE ---
right femoral sheath pulled at 0318, kristy Virk RN was present, held pressure for 20 min until 0338, groin soft, no bleeding or hematoma present, pulses palpable, pt tolerated well, continue to monitor
[2020-01-03] MEDS: nitroglycerin 1 gm/inch oint Pkt 1 INCH TOPICAL ×2 (04:24→08:29)
[2020-01-03 04:29] LABS: Alanine Aminotransferase 22 U/L (0-41); Albumin Level 3.3 g/dL (3.5-5.2); Alkaline Phosphatase 72 IU/L (40-130); Anion Gap 11.9 (5-19); Aspartate Amino Transferase 24 U/L (0-40); Blood Urea Nitrogen 10 mg/dL (8-23); Calcium 8.3 mg/dL (8.5-10.5); Carbon Dioxide 24 mmol/L (22-29); Chloride 109 mmol/L (98-107); Globulin 1.9 g/dL (1.3-4.6); Glomerular Filtration Rate 98.3 mL/min (90-130); Glucose 129 mg/dL (65-115); Osmolality Calculated 293 mOsm/kg (285-295); Potassium 3.9 mmol/L (3.5-5.1); Sodium 141 mmol/L (136-145); Total Bilirubin 0.4 mg/dL (0.15-1.2); Total Protein 5.2 g/dL (6.6-8.7)
[2020-01-03] MEDS: atorvastatin 40 mg Tablet 80 MG PO (08:29)
[2020-01-03] MEDS: folic acid 1 mg Tablet PO (08:29)
[2020-01-03] MEDS: clopidogrel 75 mg Tablet PO (08:29)
[2020-01-03] MEDS: aspirin 81 mg EC Tablet PO (08:29)
[2020-01-03] MEDS: lisinopril 10 mg Tablet PO (08:29)
--- NOTE | 2020-01-03 10:44 | PM.PN ---
Subjective Subjective: Interval history: Patient underwent a cardiac catheterization followed by PCI of the ostial lesion yesterday. He had an uneventful postprocedure course. Has not had any chest pain or palpitations since the coronary intervention. He was found to have episodes of bradycardia with a heart rate in the 30s on the monitor. Apparently the patient has been lying in the bed during the spells. He denied any specific symptoms. He has no history for syncope. At the time of admission, he had some episodes of junctional rhythm. Medications: Reviewed: Yes Medication Review Details: Current Medications Acetaminophen (Acetaminophen 325 Mg Tablet) 650 mg PO Q6H PRN PRN Reason: MILD PAIN Al Hydrox/Mg Hydrox/Simethicone (Nlpq-Nbw-Uhlojacgi-Michael 30 Ml Udc) 30 ml PO Q15M PRN PRN Reason: INDIGESTION Aspirin (Aspirin 81 Mg Ec Tablet) 81 mg PO DAILY [facility] Last Admin: 01/03/20 08:29 Dose: 81 mg Documented by: Atorvastatin Calcium (Atorvastatin 40 Mg Tablet) 80 mg PO DAILY [facility] Last Admin: 01/03/20 08:29 Dose: 80 mg Documented by: Atropine Sulfate (Atropine 1 Mg/Ml Sdv 1 Ml) 0.5 mg IVP PRN PRN PRN Reason: Symptomatic bradycardia Clopidogrel Bisulfate (Clopidogrel 75 Mg Tablet) 75 mg PO DAILY [facility] Last Admin: 01/03/20 08:29 Dose: 75 mg Documented by: Folic Acid (Folic Acid 1 Mg Tablet) 1 mg PO DAILY [facility] Last Admin: 01/03/20 08:29 Dose: 1 mg Documented by: Dextrose/Sodium Chloride (Dextrose 5%-Sod Chloride 0.45%) 1,000 mls @ 30 mls/hr IV .Q24H [facility] Last Admin: 01/02/20 20:38 Dose: Not Given Documented by: Sodium Chloride (Sodium Chloride 0.9%) 1,000 mls @ 50 mls/hr IV .Q20H [facility] Last Infusion: 01/03/20 08:32 Dose: Infused Documented by: Lisinopril (Lisinopril 10 Mg Tablet) 10 mg PO DAILY [facility] Last Admin: 01/03/20 08:29 Dose: 10 mg Documented by: Lorazepam (Lorazepam 2 Mg/Ml Inj 1 Ml) 2 mg IVP Q4H PRN PRN Reason: seizure or agitation Last Admin: 01/03/20 00:20 Dose: 2 mg Documented by: Magnesium Hydroxide (Magnesium Hydroxide 30 Ml Udc) 30 ml PO DAILY PRN PRN Reason: CONSTIPATION Morphine Sulfate (Morphine 4 Mg/Ml Sdv 1 Ml) 4 mg IVP Q4H PRN PRN Reason: SEVERE PAIN Naloxone HCl (Naloxone 0.4 Mg/Ml Sdv) 0.1 mg IVP Q2M PRN PRN Reason: RESPIRATORY RATE < 8/MIN Nitroglycerin (Nitroglycerin 0.4 Mg Sublingual Tablet) 0.4 mg SUBLINGUAL Q5M PRN PRN Reason: CHEST PAIN Last Admin: 01/01/20 18:54 Dose: 0.4 mg Documented by: Nitroglycerin (Nitroglycerin 1 Gm/Inch Oint Pkt) 1 inch TOPICAL Q6H [facility] Last Admin: 01/03/20 08:29 Dose: 1 inch Documented by: Ondansetron HCl (Ondansetron 2 Mg/Ml Sdv 2 Ml) 4 mg IVP Q6H PRN PRN Reason: NAUSEA AND VOMITING Thiamine HCl (Thiamine 100 Mg/Ml Sdv) 100 mg IV DAILY [facility] Last Admin: 01/03/20 08:29 Dose: 100 mg Documented by: Vitals/I&O/Wt Last Vital Signs Temp 97.4 F L 01/03/20 08:00 Pulse 67 01/03/20 08:00 Resp 18 01/03/20 08:00 BP 127/79 01/03/20 08:00 Pulse Ox 95 01/03/20 08:00 01/02/20 01/03/20 01/03/20 22:59 06:59 14:59 Intake Total / 31 351 / 382 1000 / 1000 Output Total 300 / 600 Balance 31 / -269 51 / -218 1000 / 1000 Weight last 48 hrs Weight 138 lb 9.6 oz Weight 148 lb Physical Exam Narrative: EXAM NARRATIVE: GENERAL: The patient is alert and oriented times three. Not in any acute distress. Unkempt HEENT: No significant pallor, icterus or lymphadenopathy. NECK: Trachea appears to be central. No masses noted. No JVD or thyromegaly appreciated. No carotid bruit. RESPIRATORY: Chest is symmetrical. No intercostals muscle retraction or any accessory muscle activation. There is no chest wall tenderness. Breath sounds are heard bilaterally. No rales or rhonchi heard. No evidence of any consolidation. BREASTS: Deferred. HEART: The PMI is in the 5th left intercostals space just inside the midclavicular line. No palpable precordial events. S1 and S2 are normal. No S3 or S4 heard. No pericardial rub or any click heard. ABDOMEN: No vessel pulsations or distention. No tenderness. No organomegaly appreciated. No abdominal bruit. Bowel sounds are normally heard. : Deferred. RECTAL: Deferred. LYMPHATIC: No lymphadenopathy noted in the neck or groin. EXTREMITIES: No edema or cyanosis. Right groin has no hematoma or bleeding. MUSCULOSKELETAL: No acute joint deformities or swelling SKIN: There are no significant scars or skin rash noted. NEUROPSYCHIATRIC: The patient is alert and oriented x3. Appears to be somewhat withdrawn. the higher functions are grossly within normal limits. No tremors or rigidity noted. Const: COMMON NORMALS: alert Resp: COMMON NORMALS: clear to auscultation bilaterally AUSCULTATION: clear to auscultation bilaterally Neuro: SENSORIUM/ORIENTATION: Yes alert Data : 01/03/20 03:30 01/03/20 03:30 A&P Assessment and plan (1) Bradycardia: Patient may have some underlying sinus node dysfunction. He had junctional rhythm at the time of admission. Currently he is asymptomatic. It may be appropriate to discharge him home with an event monitor. Status: Acute (2) NSTEMI (non-ST elevated myocardial infarction): Status post PCI of the RCA lesion. Currently stable and asymptomatic. May continue on the current medications including statin, clopidogrel, aspirin and TANO inhibitor. Status: Acute (3) Atherosclerotic heart disease of [place] coronary artery with unstable angina pectoris: The cardiac residual revealed 90% lesion in the distal RCA. Mild diffuse disease in the other vessels. Continue the medications as above. Status: Acute Qualifiers: [place] vs. transplanted heart: [place] heart Qualified Code(s): I25.110 - Atherosclerotic heart disease of [place] coronary artery with unstable angina pectoris (4) Dyslipidemia: Continue on the Lipitor. Status: Acute (5) Alcohol dependence: Once again strongly advised the patient to quit drinking. He seems under implications. Status: Inactive Qualifiers: Substance use status: uncomplicated Qualified Code(s): F10.20 - Alcohol dependence, uncomplicated Additional A&P Information Other problems are Lactic acidemia Smoking abuse History of drug abuse Emphysema Discussed with Dr. Nazario If the patient continues to remain stable, may be discharged home today. He may be discharged home on an event monitor. I will be seeing him in the clinic in 3 weeks. He will be seen by the nurse practitioner in a [facility] at [facility]. In the event of be any recurrence of chest pain, palpitations or any new symptoms, advised to contact our office or come to back to the hospital Attestations Medical Necessity Statement*: Possible discharge home today Coding Level of Care Code Acute Photo Optics Technician for [facility] Fwd Diagnoses Bradycardia R00.1 NSTEMI (non-ST elevated myocardial infarction) I21.4 Atherosclerotic heart disease of [place] coronary artery with unstable angina pectoris I25.110 [place] vs. transplanted heart: [place] heart Dyslipidemia E78.5 Alcohol dependence F10.20 Substance use status: uncomplicated
--- NOTE | 2020-01-03 12:05 | P.DS_ITS ---
Discharge Providers Date of Admission: 01/01/20 20:12 Date of Discharge: January 03, 2020 Attending Provider at Admission: Dione Evans MD Attending Provider at Discharge: Kwadwo Quintero Diagnoses at Discharge Discharge Diagnosis (1) Bradycardia: Status: Acute (2) NSTEMI (non-ST elevated myocardial infarction): Status: Acute (3) Atherosclerotic heart disease of [place] coronary artery with unstable angina pectoris: Status: Acute Qualifiers: [place] vs. transplanted heart: [place] heart Qualified Code(s): I25.110 - Atherosclerotic heart disease of [place] coronary artery with unstable angina pectoris (4) Dyslipidemia: Status: Acute (5) Alcohol dependence: Status: Inactive Qualifiers: Substance use status: uncomplicated Qualified Code(s): F10.20 - Alcohol dependence, uncomplicated (6) Lactic acidemia: Status: Acute Permanent problem details: Resolved (7) Hypokalemia: Status: Acute Permanent problem details: Replaced Other Information Additional DC diagnoses/information: Emphysema Reason for Visit Reason for Visit: CP Hospital Course Hospital Course 59-year-old gentleman with history of coronary disease, previous stenting, [id number] smoking history, current smoker, daily alcohol intake, past history of IV drug abuse, presented with chest pain, was treated for non-STEMI, monitored for alcohol withdrawal. Has history of seizure disorder in the past, not on any medications, did not have any seizures while in the hospital. CT angiogram chest and abdomen on presentation with no evidence of thoracic or abdominal aneurysm dissection, mild atherosclerosis noted within thoracic aorta, abdominal aorta with good flow proximal common iliac arteries. No pneumonia. Emphysema noted. Small hiatal hernia. Echocardiogram revealed normal ejection fraction, minimally thickened aortic and mitral valves. Trace TR. Underwent assessment by coronary angiography with balloon angioplasty, as well as stenting of RCA due to noted 90% stenosis. Please see full studies and consultation notes for details. He is continued on aspirin, Plavix, statin. While in the hospital noted to have a symptomatic bradycardia, I ideal ventricular rhythm down as low as 38. Per cardiology he is set up with event monitor and will be following up with nurse practitioner in 1 week, campaign management senior manager in 3 weeks. Due to this he is not on beta-clive. He is encouraged to stop smoking, as well as abstain from alcohol. Please reassess, assist him with cessation. In case of recurrence of seizures, consider referral to neurology. Physical Exam Const: COMMON NORMALS: no acute distress and patient oriented x3 OTHER: He states he is feeling well, denies any chest pain or pressure. No trouble breathing. Feels ready to return home. HENMT: COMMON NORMALS: oropharynx normal Neck/C-Spine: COMMON NORMALS: no JVD Resp: COMMON NORMALS: normal respiratory effort and clear to auscultation bilaterally AUSCULTATION: clear to auscultation bilaterally Cardio: COMMON NORMALS: no JVD, regular rhythm, S1 normal heart sound present, S2 normal heart sound present and No murmurs present (Cardio) RHYTHM: regular rhythm HEART SOUNDS: S1 normal heart sound present and S2 normal heart sound present GI: COMMON NORMALS: Normal to inspection, nondistended, normoactive bowel sounds present, Soft to palpation and non-tender PALPATION: Yes Soft to palpation Extremity: COMMON NORMALS: no joint enlargement and no pedal edema NARRATIVE EXTREMITY EXAM: Right groin covered with clean dressing, no bruising, no hematoma or pulsatile mass. Neuro: COMMON NORMALS: patient oriented x3 and moves all extremities Skin: COMMON NORMALS: no rashes or lesions noted GENERAL SKIN EXAM: no rashes or lesions noted Discharge Data Data Completed and Pending: Completed Studies During Hospitalization Category Date Time Status CT angio chest ab domen Urgent Cat Scan 01/01/20 Completed CV echo complete* [id number] Routine Ultrasound 01/02/20 21:38 Completed Pending at discharge Category Date Time Status INSURANCE EXECUTIVE request for service Routin e Exams 01/02/20 10:21 Taken Complete Blood Co unt w/Auto AM LABS Lab 01/04/20 04:00 Ordered Complete Blood Co unt w/Auto AM LABS Lab 01/05/20 04:00 Ordered Comprehensive Met abolic Panel AM LA BS Lab 01/04/20 04:00 Ordered Comprehensive Met abolic Panel AM LA BS Lab 01/05/20 04:00 Ordered Labs from last 24 hours 01/03/20 01/03/20 03:30 03:30 WBC 7.6 RBC 3.82 L Hgb 12.2 Hct 36.9 L MCV 96.6 H MCH 31.9 MCHC 33.1 RDW 12.7 Plt Count 270 MPV 11.0 H Neut % (Auto) 58.0 Lymph % (Auto) 27.0 [place] % (Auto) 10.7 Eos % (Auto) 3.3 Baso % (Auto) 0.7 Neut # (Auto) 4.38 Lymph # (Auto) 2.0 [place] # (Auto) 0.8 Eos # (Auto) 0.3 Baso # (Auto) 0.1 Nucleated RBC % (a uto) 0 Nucleated RBCs # 0.0 Sodium 141 Potassium 3.9 Chloride 109 H Carbon Dioxide 24 Anion Gap 11.9 BUN 10 Creatinine 0.8 GFR Calculation 98.3 Glucose 129 H Calculated Osmolal ity 293 Calcium 8.3 L Total Bilirubin 0.4 AST 24 ALT 22 Alkaline Phosphata se 72 Total Protein 5.2 L Albumin 3.3 L Globulin 1.9 Vitals: Last Vital Signs Temp 98.8 F 01/03/20 11:47 Pulse 54 L 01/03/20 11:47 Resp 17 01/03/20 11:47 BP 103/51 01/03/20 11:47 Pulse Ox 93 01/03/20 11:47 Discharge Plan Discharge Patient Disposition: Home Condition: Stable Prescriptions: New aspirin 81 mg Tablet,Delayed Release (Dr/Ec) 81 mg PO DAILY Qty: 30 RF: 0 lisinopril 10 mg Tablet 10 mg PO DAILY Qty: 30 RF: 0 atorvastatin 40 mg Tablet 80 mg PO DAILY Qty: 60 RF: 0 folic acid 1 mg Tablet 1 mg PO DAILY Qty: 30 RF: 0 clopidogrel 75 mg Tablet 75 mg PO DAILY Qty: 30 RF: 0 thiamine HCl (vitamin B1) 100 mg tablet 50 mg PO DAILY Qty: 30 RF: 0 Discontinued aspirin See Rx Instructions .ROUTE .COMPLEX RF: 0 Discharge Orders: Discharge Order (Routine); Ordered 01/03/20 Ordered By: Kwadwo Quinteor Other Ambulatory Orders: [place] cardiac event monitor (Routine) Timeframe: 1 Day Facility: [facility] - Location: Cardiac Diagnostic Laboratory Ordered By: Mateus Edwards Referrals: Victorino Polladr MD [Physician] - 01/07/20 1:30 pm Mateus Edwards MD [Physician] - (3 weeks) Regina Cordero FNP [Nurse Practitioner] - 1 week Discharge Diet: Cardiac Discharge Activity: Increase activity as tolerated Activity Restrictions/Additional Instructions: Avoid lifting more than 3 pounds for 2 days. If you notice any bleeding, pulsatile mass in right groin, please seek medical attention. Similarly if you experience any unresolving chest pain, severe shortness of breath, or other concerning symptoms, please call an ambulance. You will be set up with an event monitor as per cardiology to further assess the slow heart rates noted on EKG monitoring in the hospital. Please abstain from alcohol as it may affect your heart rate and rhythm, may also predispose you to risk factors of progression of coronary disease, as well as seizures, and include other risks like liver cirrhosis and various cancers. Please stop smoking, as this risks of progression of cardiovascular disease including more severe heart attacks, stroke, heart failure, and , in addition to other risks including various cancers. Please discuss with your primary care doctor regarding seizure history as well, consideration of referral to neurology. Please have your primary care doctor follow-up your potassium level due to a low level noted in the hospital, as well as follow-up renal function during the offi ce visit. Discharge Attestations Time Spent in Discharge Care*: greater than 30 min Quality Metrics Clinical Quality Measures During this hospital stay, did patient experience: AMI Clinical Trial Participant: No Contraindication to aspirin (AMI): Aspirin given Contraindication to statin: Statin prescribed Contraindication to PCI: PCI performed Coding Level of Care Code Acute Greeting Card Editor for g Fwd Diagnoses Bradycardia R00.1 NSTEMI (non-ST elevated myocardial infarction) I21.4 Atherosclerotic heart disease of [place] coronary artery with unstable angina pectoris I25.110 [place] vs. transplanted heart: [place] heart Dyslipidemia E78.5 Alcohol dependence F10.20 Substance use status: uncomplicated Lactic acidemia E87.2 Hypokalemia E87.6
== END 2020-01-03 15:30 | disposition home or self-care (01) | DRG 246 ==
LOC: ER 20:11 → CSU 20:43
PROVIDERS: Family Medicine; Internal Medicine Cardiovascular Disease; Admitting Provider Internal Medicine; Emergency Provider Emergency Medicine; Visit Provider Internal Medicine
PROC: 027034Z Dilation of Coronary Artery, One Artery with Drug-eluting Intraluminal Device, Percutaneous Approach (ICD-10-PCS; principal; 2020-01-02 16:30)
DX: T82.855A Stenosis of coronary artery stent, initial encounter (principal); I21.4 Non-ST elevation (NSTEMI) myocardial infarction; I25.110 Atherosclerotic heart disease of native coronary artery with unstable angina pectoris; E87.2 Acidosis; Y69 Unspecified misadventure during surgical and medical care; Y92.89 Other specified places as the place of occurrence of the external cause; R00.1 Bradycardia, unspecified; E78.5 Hyperlipidemia, unspecified; F10.20 Alcohol dependence, uncomplicated; E87.6 Hypokalemia; J43.9 Emphysema, unspecified; Z95.5 Presence of coronary angioplasty implant and graft; F17.210 Nicotine dependence, cigarettes, uncomplicated; Z79.82 Long term (current) use of aspirin; I34.0 Nonrheumatic mitral (valve) insufficiency
CPT/HCPCS: 12345; 36415; 71275; 74175; 80048; 80053; 80061; 80306; 80307; 81003; 82550; 83605; 83690; 83735; 84443; 84484; 85025; 85378; 85610; 93005; 93306; 93452; 93458; 96372; 96375; 99283; C1725; C1769; C1874; C1887; C1894; C9600; J1170; J1644; J1650; J2060; J2250; J2270; J2405; J3010; J3411; J3490; J7030; J7799; Q0163; Q9967

== ENCOUNTER 2020-01-04 14:06 | Emergency (ER) | payer SELFPAY ==
--- NOTE | 2020-01-04 14:12 | XRR_ITS ---
PROCEDURE INFORMATION: Exam: XR Chest, 1 View Exam date and time: 01/04/2020 2:26 PM Age: 59 years old Clinical indication: Chest pain; Prior surgery; Surgery date: Post-operative (0-2 days); Surgery type: Stents yesterday TECHNIQUE: Imaging protocol: XR of the chest Views: 1 view. COMPARISON: CT angio chest abdomen 01/01/2020 2:16 PM FINDINGS: Lungs: Unremarkable. No consolidation. Pleural space: Unremarkable. No pleural effusion. No pneumothorax. Heart/Mediastinum: Unremarkable. No cardiomegaly. Bones/joints: Unremarkable. XR/XR chest 1V portable [id number] IMPRESSION: No acute findings.
--- NOTE | 2020-01-04 14:12 | ECG_ITS ---
[facility] Test Date: 2020-01-04 Pat Name: Hema Segovia Department: Room: Gender: Male Counseling Services Manager: : 1960 Requested By: Steffanie Ward Order Number: [id number] Roberta MD: Kendall Peter M.D. Measurements Intervals [place] Rate: 67 P: 37 MT: 207 QRS: -23 QRSD: 81 T: -32 QT: 380 QTc: 402 Interpretive Statements SINUS RHYTHM WITH FIRST DEGREE AV BLOCK LOW QRS VOLTAGE IN PRECORDIAL LEADS [QRS DEFLECTION < 1.0 mV IN CHEST LEADS] INFERIOR MYOCARDIAL INFARCTION , OF INDETERMINATE AGE [40+ ms Q WAVE AND/OR ST/T ABNORMALITY IN II/aVF] Compared to ECG 01/01/2020 17:56:16 Low QRS voltage now present Myocardial infarct finding now present Sinus bradycardia no longer present T-wave abnormality no longer present Electronically Signed On 01-05-2020 18:43:16 INSTRUCTIONAL TECHNOLOGY COACH by Kendall Peter M.D. [email or web address].oNoise/store/NU/[id number] f
[2020-01-04 14:15] VITALS: BP 111/69; PULSE 76; RESP 18; TEMP 36.7; O2SAT 95; BMI 22.3
[2020-01-04 14:48] LABS: Basophils # 0.1 10^3/uL (0.0-0.1); Basophils % 0.6 %; Eosinophils # 0.3 10^3/uL (0.0-0.8); Eosinophils % 3.2 %; Hematocrit 48.3 % (42.0-52.0); Lymphocytes # 2.7 10^3/uL (0.8-4.8); Lymphocytes % 26.8 %; Mean Corpuscular HGB Conc 33.1 g/dL (30.0-36.0); Mean Corpuscular Hemoglobin 32.1 pg (28.0-34.0); Mean Corpuscular Volume 96.8 fL (80-94); Mean Platelet Volume 10.5 fL (7.4-10.4); Monocytes % 10.5 %; Neutrophils # 5.77 10^3/uL (1.8-7.7); Neutrophils % 58.6 %; Nucleated Red Blood Cells % 0 %; Platelet Count 296 10^3/cmm (130-400); Red Blood Count 4.99 10^6/uL (4.1-5.3); Red Cell Distribution Width 12.7 % (12.1-15.1); White Blood Count 9.9 10^3/uL (4.0-10.0)
[2020-01-04 14:55] VITALS: BP 132/74; PULSE 73; RESP 18; O2SAT 97
[2020-01-04 15:11] LABS: INR 0.92 (0.8-1.2)
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
[2020-01-04 15:20] LABS: Troponin(5th) Baseline 235 ng/L (0-15)
[2020-01-04 15:25] LABS: Alanine Aminotransferase 32 U/L (0-41); Albumin Level 4.5 g/dL (3.5-5.2); Alcohol Level 148 mg/dL (0-10); Alkaline Phosphatase 101 IU/L (40-130); Anion Gap 15.4 (5-19); Aspartate Amino Transferase 38 U/L (0-40); Blood Urea Nitrogen 8 mg/dL (8-23); Carbon Dioxide 25 mmol/L (22-29); Chloride 104 mmol/L (98-107); Globulin 2.9 g/dL (1.3-4.6); Glomerular Filtration Rate 114.6 mL/min (90-130); Glucose 141 mg/dL (65-115); Lipase 35 U/L (13-60); NT Pro B Type Natriuretic Pept 629 pg/mL (0-125); Osmolality Calculated 293 mOsm/kg (285-295); Potassium 3.4 mmol/L (3.5-5.1); Sodium 141 mmol/L (136-145); Total Bilirubin 0.5 mg/dL (0.15-1.2); Total Protein 7.4 g/dL (6.6-8.7)
[2020-01-04 17:12] VITALS: BP 137/76; PULSE 53; RESP 18; O2SAT 99
[2020-01-04 17:19] LABS: Troponin 5 2HR Delta -34.8 ABS# (0-10)
[2020-01-04 17:21] LABS: Troponin 5 2HR 200.2 ng/L (0-15)
[2020-01-04 17:33] VITALS: RESP 20
[2020-01-04] MEDS: morphine 4 mg/mL SDV 1 mL IVP (17:33)
[2020-01-04 19:37] VITALS: BP 139/65; RESP 18; O2SAT 95
--- NOTE | 2020-01-04 20:12 | ECG_ITS ---
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 Measurements Intervals [place] Rate: 63 P: 31 [place]: 206 QRS: -11 QRSD: 89 T: -36 QT: 414 QTc: 427 Interpretive Statements SINUS RHYTHM LOW QRS VOLTAGE IN PRECORDIAL LEADS [QRS DEFLECTION < 1.0 mV IN CHEST LEADS] Compared to ECG 01/04/2020 15:02:56 NO SIGNIFICANT CHANGE Electronically Signed On 01-05-2020 19:16:41 MULTI TOWNSHIP ASSESSOR by Kendall Peter M.D. [id number]
[2020-01-04 21:28] LABS: Troponin 5 6HR Delta -10.9 ng/L (0-12)
[2020-01-04 21:29] LABS: Troponin 5 6HR 224.1 ng/L (0-15)
[2020-01-04 22:00] VITALS: BP 141/76; PULSE 84; RESP 18; TEMP 36.6; O2SAT 95
== END 2020-01-04 22:02 | disposition home or self-care (01) ==
PROVIDERS: Emergency Provider Emergency Medicine
DX: R07.9 Chest pain, unspecified (principal); R77.8 Other specified abnormalities of plasma proteins; Z79.02 Long term (current) use of antithrombotics/antiplatelets; Z79.82 Long term (current) use of aspirin; I25.10 Atherosclerotic heart disease of native coronary artery without angina pectoris; E78.5 Hyperlipidemia, unspecified; I25.2 Old myocardial infarction; F17.210 Nicotine dependence, cigarettes, uncomplicated
CPT/HCPCS: 12345; 36415; 71045; 80053; 80307; 83690; 83880; 84484; 85025; 85610; 93005; 96374; 99283; 99284; J2270

== ENCOUNTER 2020-01-28 13:44 | Emergency (ER) | payer SELFPAY ==
[2020-01-28 13:50] VITALS: BP 136/81; PULSE 84; RESP 18; TEMP 36.1; O2SAT 92; BMI 22.4
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
--- NOTE | 2020-01-28 14:12 | USCV_ITS ---
Hema Segovia Age: 59 Gender: M : 1960 Exam Date: 01/28/2020 14:33 Ordering Phys: Ming Klein Technologist: Danica Win Exam Location: [facility] [place]_ Indication: CLAUDICATION. DECREASED PULSE RLE. 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
--- NOTE | 2020-01-28 14:15 | CT_ITS ---
WS: [id number] CT head wo con* [id number] REASON FOR EXAM: weakness right lower leg IV CONTRAST ADMINISTERED: Noncontrast TOTAL EXAM DLP: 857.[address] scans at [facility] use at least one of these dose optimization techniques: automat ed exposure control; mA and/or kV adjustment per patient size (includes targeted exams where dose is matched to clinical indication); or iterative reconstruction. FINDINGS: No midline shift or other significant mass effect. No findings of intracranial hemorrhage and no extra-axial fluid collection. 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 Low-attenuation in the white matter adjacent to the posterior body of the right lateral ventricle pos teriorly. These areas are likely secondary to chronic ischemic demyelination or old infarct. Patient has mild to moderate enlargement of the lateral and third ventricles with mild enlargement of the fourth ventricle. CT/CT head wo con* [id number] IMPRESSION: Chronic right hemisphere abnormalities as above. No acute intracranial abnormal ity. The ventricular configuration would only be potentially significant in a patien t with clinical findings of low pressure hydrocephalus.
[2020-01-28 14:43] LABS: Basophils # 0.1 10^3/uL (0.0-0.1); Basophils % 0.8 %; Eosinophils # 0.3 10^3/uL (0.0-0.8); Eosinophils % 2.6 %; Hematocrit 50.4 % (42.0-52.0); Hemoglobin 16.5 g/dL (11.7-16.6); Lymphocytes # 2.4 10^3/uL (0.8-4.8); Lymphocytes % 22.8 %; Mean Corpuscular HGB Conc 32.7 g/dL (30.0-36.0); Mean Corpuscular Hemoglobin 31.6 pg (28.0-34.0); Mean Corpuscular Volume 96.6 fL (80-94); Mean Platelet Volume 10.5 fL (7.4-10.4); Monocytes # 0.9 10^3/uL (0.2-0.9); Monocytes % 8.4 %; Neutrophils # 6.89 10^3/uL (1.8-7.7); Neutrophils % 65.1 %; Nucleated Red Blood Cells % 0 %; Platelet Count 259 10^3/cmm (130-400); Red Blood Count 5.22 10^6/uL (4.1-5.3); Red Cell Distribution Width 12.8 % (12.1-15.1); White Blood Count 10.6 10^3/uL (4.0-10.0)
[2020-01-28 15:08] LABS: Alanine Aminotransferase 51 U/L (0-41); Albumin Level 4.5 g/dL (3.5-5.2); Alkaline Phosphatase 112 IU/L (40-130); Anion Gap 16.2 (5-19); Aspartate Amino Transferase 44 U/L (0-40); Blood Urea Nitrogen 14 mg/dL (8-23); Calcium 9.2 mg/dL (8.5-10.5); Carbon Dioxide 22 mmol/L (22-29); Chloride 107 mmol/L (98-107); Globulin 2.5 g/dL (1.3-4.6); Glomerular Filtration Rate 114.6 mL/min (90-130); Glucose 134 mg/dL (65-115); Osmolality Calculated 294 mOsm/kg (285-295); Potassium 4.2 mmol/L (3.5-5.1); Sodium 141 mmol/L (136-145); Total Bilirubin 0.4 mg/dL (0.15-1.2)
[2020-01-28] MEDS: HYDROcodone-acetaminophen 5-325 mg Tablet 1 TAB PO (16:09)
--- NOTE | 2020-01-29 12:31 | DCPLANNER ---
change control manager had message to schedule a follow up appointment for patient with [facility]. change control manager called [facility], spoke with Fernanda, gave clinic patients information. A follow up appointment is scheduled for Monday, February 05, 2020 at 2:[address] Edwards. Clinic will call patient with appointment information.
--- NOTE | 2020-03-06 14:21 | DCPLANNER ---
Patient had a follow up appointment scheduled for 02.05.20 with [facility] - patient did attend appointment.
== END 2020-01-28 16:10 | disposition home or self-care (01) ==
PROVIDERS: Emergency Provider Nurse Practitioner Family
DX: I73.9 Peripheral vascular disease, unspecified (principal); I25.10 Atherosclerotic heart disease of native coronary artery without angina pectoris; E78.5 Hyperlipidemia, unspecified; I25.2 Old myocardial infarction; F17.210 Nicotine dependence, cigarettes, uncomplicated
CPT/HCPCS: 12345; 70450; 80053; 85025; 93926; 99282; 99283

== ENCOUNTER → 2020-02-21 11:06 | Outpatient (BNVA) | payer SELFPAY | PROVIDERS: Visit Provider Family Medicine | DX: E78.5 Hyperlipidemia, unspecified (principal); I10 Essential (primary) hypertension | CPT/HCPCS: 80053 ==